=== PATIENT | male | born 1990 | race Caucasian/White ===

== ENCOUNTER 2021-08-04 21:05 | Emergency (ER) | payer MEDICARE, MEDICAID | END 2021-08-04 22:32 | disposition home or self-care (01) | LOC: JD.ED 21:05 | DX: R56.9 Unspecified convulsions (principal); E78.00 Pure hypercholesterolemia, unspecified; Z88.8 Allergy status to other drugs, medicaments and biological substances | CPT/HCPCS: 99283; 99284 ==

== ENCOUNTER 2022-07-11 14:42 | Emergency (ER) | payer MEDICARE, MEDICAID ==
[2022-07-11 18:45] LABS: CORONAVIRUS COVID-19 NAA NEGATIVE (NEGATIVE)
== END 2022-07-11 20:29 | disposition home or self-care (01) ==
LOC: JD.ED 14:42
DX: F91.9 Conduct disorder, unspecified (principal); E78.00 Pure hypercholesterolemia, unspecified; Z88.8 Allergy status to other drugs, medicaments and biological substances; Z79.899 Other long term (current) drug therapy; Z20.822 Contact with and (suspected) exposure to COVID-19
CPT/HCPCS: 0241U; 36415; 80053; 80175; 80201; 80203; 83735; 84100; 85025; 99284; 99283

== ENCOUNTER 2022-08-14 10:50 | Emergency (ER) | payer MEDICARE, MEDICAID | END 2022-08-14 15:10 | disposition home or self-care (01) | LOC: JD.ED 10:50 | DX: F39 Unspecified mood [affective] disorder (principal); Z88.8 Allergy status to other drugs, medicaments and biological substances | CPT/HCPCS: 36415; 80053; 80143; 80175; 80179; 80201; 80203; 80299; 83735; 84100; 84443; 85025; 99284 ==

== ENCOUNTER 2023-03-07 09:48 | Emergency (ER) | payer MEDICARE, MEDICAID ==
[2023-03-07 12:06] LABS: BASOPHILS ABSOLUTE AUTO 0.1 K/mm3 (0.0-0.2); BASOPHILS PERCENT AUTO 1.3 % (0.0-1.0); EOSINOPHILS ABSOLUTE AUTO 0.6 K/mm3 (0.0-0.4); EOSINOPHILS PERCENT AUTO 7.8 % (0.0-6.0); HEMATOCRIT 41.6 % (42.0-52.0); HEMOGLOBIN 13.6 gm/dl (14.0-18.0); IMMATURE GRAN ABSOLUTE AUTO 0.01 K/mm3 (0.00-0.05); IMMATURE GRAN PERCENT AUTO 0.1 % (0.0-0.4); LYMPHOCYTES ABSOLUTE AUTO 2.5 K/mm3 (1.0-4.8); LYMPHOCYTES PERCENT AUTO 34.9 % (24.0-44.0); MEAN CORPUSCULAR HEMOGLOBIN 29.2 pg (28.0-32.0); MEAN CORPUSCULAR HGB CONC 32.7 g/dl (32.0-36.0); MEAN CORPUSCULAR VOLUME 89.3 fl (83.0-99.0); MEAN PLATELET VOLUME 9.1 fl (9.4-12.4); MONOCYTES ABSOLUTE AUTO 0.6 K/mm3 (0.0-0.8); NEUTROPHILS ABSOLUTE AUTO 3.4 K/mm3 (1.8-7.7); NEUTROPHILS PERCENT AUTO 47.9 % (41.0-71.0); PLATELET COUNT,PLT 182 K/mm3 (150-400); RED BLOOD CELL COUNT 4.66 M/mm3 (4.52-5.90); WHITE BLOOD CELL COUNT,WBC 7.16 K/mm3 (3.9-11.3)
[2023-03-07 12:28] LABS: A/G RATIO 1.2 (1-2); ALANINE AMINOTRANSFERASE,ALT 28 U/L (16-63); ALBUMIN 3.9 g/dl (3.4-5.0); ALKALINE PHOSPHATASE 85 U/L (46-116); ANION GAP 13.9 (5-15); ASPARTATE AMNIOTRANSFERASE,AST 11 U/L (15-37); BILIRUBIN TOTAL 0.3 mg/dL (0.2-1.0); BLOOD UREA NITROGEN,BUN 31 mg/dL (7-18); BUN/CREATININE RATIO 28.2 (14-18); C-REACTIVE PROTEIN <0.2 mg/dL (<1.0); CALCIUM 8.9 mg/dL (8.5-10.1); CARBON DIOXIDE,CO2 25 mEq/L (21-32); CHLORIDE,CL 104 mEq/L (98-107); CREATININE 1.1 mg/dL (0.7-1.3); EST CRCL DRUG DOSING (CG) 85.71 mL/min; ESTIMATED GFR 91 mL/min (>60); GLUCOSE RANDOM 97 mg/dL (70-99); POTASSIUM,K 3.9 mEq/L (3.5-5.1); PROTEIN TOTAL,TP 7.3 g/dl (6.4-8.2); SODIUM,NA 139 mEq/L (136-145)
== END 2023-03-07 13:50 | disposition home or self-care (01) ==
LOC: JD.ED 09:48
DX: R56.9 Unspecified convulsions (principal); E86.0 Dehydration; Z79.899 Other long term (current) drug therapy; Z88.8 Allergy status to other drugs, medicaments and biological substances
CPT/HCPCS: 36415; 80053; 85025; 86140; 99284

== ENCOUNTER 2024-05-21 19:38 | Emergency (ER) | payer MEDICARE, MEDICAID ==
[2024-05-21] MEDS: Sodium Chloride 0.9% 1,000 ML IV STA (20:50)
[2024-05-21] MEDS: Sodium Chloride 0.9% 10 ML Syringe FLUSH PRN (20:51)
[2024-05-21 21:49] LABS: BASOPHILS ABSOLUTE AUTO 0.1 K/mm3 (0.0-0.2); BASOPHILS PERCENT AUTO 0.9 % (0.0-1.0); EOSINOPHILS ABSOLUTE AUTO 0.9 K/mm3 (0.0-0.4); EOSINOPHILS PERCENT AUTO 10.2 % (0.0-6.0); HEMATOCRIT 38.8 % (42.0-52.0); HEMOGLOBIN 12.5 gm/dl (14.0-18.0); IMMATURE GRAN ABSOLUTE AUTO 0.01 K/mm3 (0.00-0.05); IMMATURE GRAN PERCENT AUTO 0.1 % (0.0-0.4); LYMPHOCYTES ABSOLUTE AUTO 2.9 K/mm3 (1.0-4.8); LYMPHOCYTES PERCENT AUTO 33.8 % (24.0-44.0); MEAN CORPUSCULAR HEMOGLOBIN 29.3 pg (28.0-32.0); MEAN CORPUSCULAR HGB CONC 32.2 g/dl (32.0-36.0); MEAN CORPUSCULAR VOLUME 90.9 fl (83.0-99.0); MEAN PLATELET VOLUME 9.8 fl (9.4-12.4); MONOCYTES ABSOLUTE AUTO 0.7 K/mm3 (0.0-0.8); MONOCYTES PERCENT AUTO 7.9 % (0.0-8.0); NEUTROPHILS PERCENT AUTO 47.1 % (41.0-71.0); PLATELET COUNT,PLT 196 K/mm3 (150-400); RED BLOOD CELL COUNT 4.27 M/mm3 (4.52-5.90)
[2024-05-21 22:15] LABS: A/G RATIO 1.2 (1-2); ALBUMIN 3.5 g/dl (3.4-5.0); ANION GAP 14.4 (5-15); BILIRUBIN TOTAL 0.2 mg/dL (0.2-1.0); BUN/CREATININE RATIO 33.3 (14-18); CALCIUM 8.1 mg/dL (8.5-10.1); CREATININE 0.9 mg/dL (0.7-1.3); EST CRCL DRUG DOSING (CG) 103.8 mL/min; POTASSIUM,K 3.4 mEq/L (3.5-5.1); PROTEIN TOTAL,TP 6.4 g/dl (6.4-8.2)
[2024-05-21 23:12] LABS: APPEARANCE,URINE CLEAR (Clear); BILIRUBIN,URINE NEGATIVE (Negative); COLOR,URINE YELLOW (Yellow); GLUCOSE,URINE NEGATIVE (Negative); KETONES,URINE NEGATIVE (Negative); LEUKOCYTE ESTERASE,URINE NEGATIVE (Negative); NITRITE,URINE NEGATIVE (Negative); OCCULT BLOOD,URINE NEGATIVE (Negative); PH,URINE 6.5 (5.0-8.0); PROTEIN,URINE NEGATIVE (Negative); UROBILINOGEN,URINE 0.2 (0.2-1.0)
== END 2024-05-21 23:23 | disposition home or self-care (01) ==
LOC: JD.ED 19:38
DX: R30.0 Dysuria (principal); J45.909 Unspecified asthma, uncomplicated; Z88.8 Allergy status to other drugs, medicaments and biological substances; Z79.899 Other long term (current) drug therapy
CPT/HCPCS: 36415; 74176; 80053; 81003; 85025; 96360; 99284; J7030; 99283

== ENCOUNTER 2024-10-18 19:10 | Emergency (ER) | payer MEDICARE, MEDICAID ==
[2024-10-18 19:55] LABS: APPEARANCE,URINE CLEAR (Clear); BILIRUBIN,URINE NEGATIVE (Negative); COLOR,URINE YELLOW (Yellow); GLUCOSE,URINE NEGATIVE (Negative); KETONES,URINE NEGATIVE (Negative); LEUKOCYTE ESTERASE,URINE NEGATIVE (Negative); NITRITE,URINE NEGATIVE (Negative); OCCULT BLOOD,URINE NEGATIVE (Negative); PROTEIN,URINE NEGATIVE (Negative); UROBILINOGEN,URINE 0.2 (0.2-1.0)
[2024-10-18 20:04] LABS: BASOPHILS ABSOLUTE AUTO 0.1 K/mm3 (0.0-0.2); BASOPHILS PERCENT AUTO 0.9 % (0.0-1.0); EOSINOPHILS ABSOLUTE AUTO 0.7 K/mm3 (0.0-0.4); EOSINOPHILS PERCENT AUTO 7.5 % (0.0-6.0); HEMOGLOBIN 13.6 gm/dl (14.0-18.0); IMMATURE GRAN ABSOLUTE AUTO 0.02 K/mm3 (0.00-0.05); IMMATURE GRAN PERCENT AUTO 0.2 % (0.0-0.4); LYMPHOCYTES PERCENT AUTO 31.7 % (24.0-44.0); MEAN CORPUSCULAR HEMOGLOBIN 29.1 pg (28.0-32.0); MEAN CORPUSCULAR HGB CONC 32.4 g/dl (32.0-36.0); MEAN CORPUSCULAR VOLUME 89.7 fl (83.0-99.0); MEAN PLATELET VOLUME 9.5 fl (9.4-12.4); MONOCYTES ABSOLUTE AUTO 0.8 K/mm3 (0.0-0.8); MONOCYTES PERCENT AUTO 8.7 % (0.0-8.0); NEUTROPHILS ABSOLUTE AUTO 4.9 K/mm3 (1.8-7.7); PLATELET COUNT,PLT 203 K/mm3 (150-400); RED BLOOD CELL COUNT 4.68 M/mm3 (4.52-5.90); WHITE BLOOD CELL COUNT,WBC 9.59 K/mm3 (3.9-11.3)
[2024-10-18 20:37] LABS: A/G RATIO 1.1 (1-2); ALBUMIN 3.8 g/dl (3.4-5.0); ANION GAP 14.8 (5-15); BILIRUBIN TOTAL 0.3 mg/dL (0.2-1.0); CALCIUM 9.1 mg/dL (8.5-10.1); EST CRCL DRUG DOSING (CG) 93.29 mL/min; POTASSIUM,K 3.8 mEq/L (3.5-5.1); PROTEIN TOTAL,TP 7.3 g/dl (6.4-8.2)
== END 2024-10-18 21:56 | disposition home or self-care (01) ==
LOC: JD.ED 19:10
DX: S42.292A Other displaced fracture of upper end of left humerus, initial encounter for closed fracture (principal); G40.909 Epilepsy, unspecified, not intractable, without status epilepticus; Z88.8 Allergy status to other drugs, medicaments and biological substances; Z79.899 Other long term (current) drug therapy; E78.00 Pure hypercholesterolemia, unspecified; J45.909 Unspecified asthma, uncomplicated; W01.198A Fall on same level from slipping, tripping and stumbling with subsequent striking against other object, initial encounter; Y93.89 Activity, other specified
CPT/HCPCS: 36415; 73030-26-LT; 73030-LT; 80053; 81003; 85025; 99284

== ENCOUNTER 2024-11-29 13:07 | Emergency (ER) | payer MEDICARE, MEDICAID | END 2024-11-29 15:15 | disposition home or self-care (01) | LOC: JD.ED 13:07 | DX: R56.9 Unspecified convulsions (principal); M54.2 Cervicalgia; M54.6 Pain in thoracic spine; Z88.8 Allergy status to other drugs, medicaments and biological substances; Z79.899 Other long term (current) drug therapy; J45.909 Unspecified asthma, uncomplicated | CPT/HCPCS: 70450; 70450-26; 72125; 72125-26; 72128; 72128-26; 73030-26-LT; 73030-LT; 99284 ==

== ENCOUNTER 2025-02-08 19:49 | Emergency (ER) | payer MEDICARE, MEDICAID ==
[2025-02-08 20:46] LABS: BASOPHILS ABSOLUTE AUTO 0.1 K/mm3 (0.0-0.2); BASOPHILS PERCENT AUTO 1.4 % (0.0-1.0); EOSINOPHILS ABSOLUTE AUTO 0.3 K/mm3 (0.0-0.4); EOSINOPHILS PERCENT AUTO 3.6 % (0.0-6.0); IMMATURE GRAN ABSOLUTE AUTO 0.02 K/mm3 (0.00-0.05); IMMATURE GRAN PERCENT AUTO 0.3 % (0.0-0.4); LYMPHOCYTES ABSOLUTE AUTO 2.8 K/mm3 (1.0-4.8); LYMPHOCYTES PERCENT AUTO 35.7 % (24.0-44.0); MEAN PLATELET VOLUME 9.2 fl (9.4-12.4); MONOCYTES ABSOLUTE AUTO 0.7 K/mm3 (0.0-0.8); MONOCYTES PERCENT AUTO 9.1 % (0.0-8.0); NEUTROPHILS ABSOLUTE AUTO 3.8 K/mm3 (1.8-7.7); NEUTROPHILS PERCENT AUTO 49.9 % (41.0-71.0); NRBC ABSOLUTE 0.00 (0.00-0.02); NRBC PERCENT 0.0 % (0.0-0.2); PLATELET COUNT,PLT 182 K/mm3 (150-400); RED BLOOD CELL COUNT 4.51 M/mm3 (4.52-5.90); WHITE BLOOD CELL COUNT,WBC 7.70 K/mm3 (3.9-11.3)
[2025-02-08 21:15] LABS: A/G RATIO 1.2 (1-2); ALANINE AMINOTRANSFERASE,ALT 34.0 U/L (16-63); ASPARTATE AMNIOTRANSFERASE,AST 19.0 U/L (15-37); BILIRUBIN TOTAL 0.2 mg/dL (0.2-1.0); BLOOD UREA NITROGEN,BUN 23.0 mg/dL (7-18); CARBON DIOXIDE,CO2 26.0 mEq/L (21-32); CHLORIDE,CL 104.0 mEq/L (98-107); CREATININE 0.8 mg/dL (0.7-1.3); EST CRCL DRUG DOSING (CG) 113.18 mL/min; ESTIMATED GFR 119.0 mL/min (>60); GLUCOSE RANDOM 116.0 mg/dL (70-99); POTASSIUM,K 3.4 mEq/L (3.5-5.1); PROTEIN TOTAL,TP 7.0 g/dl (6.4-8.2); SODIUM,NA 138.0 mEq/L (136-145)
== END 2025-02-08 22:12 | disposition home or self-care (01) ==
LOC: JD.ED 19:49
DX: K92.1 Melena (principal); K59.01 Slow transit constipation; Z79.899 Other long term (current) drug therapy; Z79.51 Long term (current) use of inhaled steroids; Z88.8 Allergy status to other drugs, medicaments and biological substances
CPT/HCPCS: 36415; 74018; 74018-26; 80053; 85025; 99284; 99285